=== PATIENT | female | born 1970 | race Caucasian/White ===

== ENCOUNTER 2019-01-08 15:50 | Emergency (ER) | payer OTHER ==
--- NOTE | 2019-01-08 16:00 | ED ---
Upper Extremity Pain - HPI Summary HPI Summary: Patient complains of left shoulder pain 2 days. 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 Denies any other pain, injury or symptoms. - History of Current Complaint Chief Complaint: EDExtremityUpper Stated Complaint: LT SHOULDER PAIN PER PT Time Seen by Provider: 01/08/19 15:58 Hx Obtained From: Patient Mechanism Of Injury: Unknown Onset/Duration: Started Days Ago Timing: Constant Severity Initially: Severe Severity Currently: Severe Pain Location: Shoulder Character: Aching, Throbbing Aggravating Factor(s): Movement Alleviating Factor(s): Nothing Associated Signs & Symptoms: Positive: Negative - Allergies/Home Medications Allergies/Adverse Reactions: Allergies Allergy/AdvReac Type Severity Reaction Status Date / Time MS Erythromycin Allergy RASH, Verified 08/02/18 14:49 VOMITING MS Sulfa Drugs Allergy Rash Verified 08/02/18 14:49 MS Tetracycline Allergy RASH, Verified 08/02/18 14:49 VOMITING PMH/Surg Hx/FS Hx/Imm Hx Endocrine/Hematology History: Reports: Hx Diabetes - TYPE 2 Denies: Hx Anticoagulant Therapy, Hx Blood Disorders, Hx Unexplained Bleeding Cardiovascular History: Reports: Hx Congestive Heart Failure - HISTORY OF R/T JANUVIA INTAKE, Hx Hypertension - CONTROL WITH MEDS Respiratory History: Comment Only: Hx Sleep Apnea - NOT DIAGNOSISED History: Denies: Hx Dialysis Musculoskeletal History: Reports: Hx Arthritis - BILATERAL THUMBS Sensory History: Reports: Hx Contacts or Glasses - DISTANCE GLASSES Denies: Hx Hearing Aid Opthamlomology History: Reports: Hx Contacts or Glasses - DISTANCE GLASSES EENT History: Denies: Hx Deafness Neurological History: Reports: Hx Headaches - SINUS HEADACHES - Cancer History Hx Chemotherapy: No Hx Radiation Therapy: No - Surgical History Surgery Procedure, Year, and Place: TONSILLECTOMY A CHILD,. 1992 [facility] [place] FOOT, [place], [place] Hx Anesthesia Reactions: No Infectious Disease History: No Infectious Disease History: Denies: Traveled Outside the [place] in Last 30 Days - Family History Known Family History: Positive: None - Social History Alcohol Use: Occasionally Hx Substance Use: No Substance Use Type: Reports: None Hx Tobacco Use: No Smoking Status (MU): Never Smoked Tobacco Review of Systems Constitutional: Negative Eyes: Negative ENT: Negative Cardiovascular: Negative Respiratory: Negative Gastrointestinal: Negative Genitourinary: Negative Musculoskeletal: Other Skin: Negative Neurological: Negative Psychological: Normal All Other Systems Reviewed And Are Negative: Yes Physical Exam - Summary Physical Exam Summary: Patient has full range of motion with moderate pain. Tenderness to palpation along anterior shoulder and triceps. Mild swelling to triceps. Flexion and extension against resistance intact at the elbow. PMS intact distally. Triage Information Reviewed: Yes Vital Signs On Initial Exam: Initial Vitals Temp Pulse Resp BP Pulse Ox 96.9 F 103 16 160/97 98 01/08/19 15:53 01/08/19 15:53 01/08/19 15:53 01/08/19 15:53 01/08/19 15:53 Vital Signs Reviewed: Yes Appearance: Positive: Well-Appearing Skin: Positive: Warm Head/Face: Positive: Normal Head/Face Inspection Eyes: Positive: Normal ENT: Positive: Normal ENT inspection Neck: Positive: Supple Respiratory/Lung Sounds: Positive: Clear to Auscultation Cardiovascular: Positive: Normal Abdomen Description: Positive: Nontender Musculoskeletal: Positive: Normal Neurological: Positive: Normal Psychiatric: Positive: Normal AVPU Assessment: Alert - Tracey Coma Scale Best Eye Response: 4 - Spontaneous Best Motor Response: 6 - Obeys Commands Best Verbal Response: 5 - Oriented Coma Scale Total: 15 Procedures - Sedation Patient Received Moderate/Deep Sedation with Procedure: No Diagnostics - Vital Signs Vital Signs Temp Pulse Resp BP Pulse Ox 01/08/19 15:53 96.9 F 103 16 160/97 98 - Laboratory Lab Statement: Any lab studies that have been ordered have been reviewed, and results considered in the medical decision making process. Course/Dx - Course Course Of Treatment: Patient complains of left shoulder pain 2 days. 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 Denies any other pain, injury or symptoms. Vital signs within normal limits. X-ray shoulder negative for fracture, positive for osteoarthritis. Patient advised to follow-up with orthopedics for further evaluation. Patient understands and approves of plan. - Diagnoses Provider Diagnoses: Shoulder pain, left Discharge ED - Sign-Out/Discharge Documenting (check all that apply): Patient Departure - Discharge Plan Condition: Stable Disposition: HOME Prescriptions: Lidocaine PATCH 5%* [Lidoderm 5% Patch*] 1 patch TRANSDERM DAILY 5 Days #5 patch Patient Education Materials: Shoulder Pain (ED) Referrals: Jesenia Mora NP [Primary Care Provider] - Jaquelin Barbour MD [Medical Doctor] - Additional Instructions: Alternate ibuprofen 600 mg with Tylenol 650 mg every 3 hours as needed for shoulder pain. Follow-up with orthopedics Dr. Barbour for further evaluation. - Billing Disposition and Condition Condition: STABLE Disposition: Home
[2019-01-08] MEDS ORDERED: Ketorolac INJ* 30 MG/ML 1 ML VIAL IM ONE (18:29)
[2019-01-08] MEDS ORDERED: Lidocaine PATCH 5%* 1 PATCH TRANSDERM SCH (18:29)
[2019-01-08 18:54] VITALS: BP 143/87
[2019-01-08] MEDS ORDERED: Lidocaine Patch REMOVE* 1 NOTE MISC SCH (21:00)
== END 2019-01-08 18:52 | disposition home or self-care (01) ==
LOC: ED 15:50
DX: M25.512 Pain in left shoulder (principal); E11.9 Type 2 diabetes mellitus without complications; I11.0 Hypertensive heart disease with heart failure; I50.9 Heart failure, unspecified; Z88.1 Allergy status to other antibiotic agents; Z88.2 Allergy status to sulfonamides
CPT/HCPCS: 96372; 99281; A9270-GY; J1885